=== PATIENT | female | born 1995 | race Caucasian/White ===

== ENCOUNTER 2018-02-06 12:07 | Emergency (ER) | payer OTHER ==
[~2018-02-06] VITALS: Ht 160 cm; Wt 56.7 kg
[2018-02-06 12:22] VITALS: BP 113/69
[2018-02-06] MEDS ORDERED: AMOXICILLIN500 M2 PO (14:40)
[2018-02-06] MEDS ORDERED: XULANE PATCH1 EACH TOP (14:41)
[2018-02-06] MEDS ORDERED: HYDROXYZINE HCL25 M3 PO (14:42)
--- NOTE | 2018-02-06 14:45 | ED THROAT/DENTAL COMPLAINT ---
History of Present Illness General Chief Complaint: General Adult Stated Complaint: VOMITTING, SWOLLEN TONGUE STATUS POST ORAL SURGERY Source: patient Exam Limitations: no limitations Vital Signs & Intake/Output Vital Signs & Intake/Output Vital Signs Date Time Temp Pulse Resp B/P B/P Pulse O2 O2 Flow FiO2 Mean Ox Delivery Rate 02/06 1349 99 Room Air 02/06 1222 97.3 96 18 113/69 98 Room Air Room Air Allergies Coded Allergies: No Known Allergies (02/06/18) Triage Note: PT TO ED S/P "ALL 4 WISDOM TEETH REMOVED ON SUNDAY, NOW FEELING NUMBNESS TO TONGUE SWELLING, DIFF SWALLOWING, VOMITING". Triage Nurses Notes Reviewed? yes : No Patient currently breastfeeds: No HPI: Patient presents for evaluation of tongue swelling and vomiting postop day #2 after 4 wisdom teeth resection. Patient is currently taking an antibiotic ( Augmentin) and was taking hydrocodone up until yesterday for pain. Patient denies any fever or cold symptoms currently. She has been able to swallow liquids and pills. No apparent difficulty breathing. Family contacted the oral surgeon who did the extraction and was told to report to an emergency Department for evaluation of a possible allergic reaction. Past History Travel History Traveled to [place] past 21 day No Medical History Any Pertinent Medical History? see below for history Neurological: NONE EENT: NONE Cardiovascular: NONE Respiratory: NONE Gastrointestinal: NONE Hepatic: NONE Renal: NONE Musculoskeletal: NONE Psychiatric: anxiety Endocrine: NONE Blood Disorders: NONE Cancer(s): NONE SENIOR HOUSEKEEPER/Reproductive: NONE Surgical History Surgical History: SEE hpi Psychosocial History What is your primary language Kyrgyz Tobacco Use: Never used ETOH Use: occasional use Illicit Drug Use: denies illicit drug use Family History Hx Contributory? No Review of Systems Review of Systems Constitutional: Reports: no symptoms. EENTM: Reports: see HPI. Respiratory: Reports: no symptoms. Cardiovascular: Reports: no symptoms. GI: Reports: no symptoms. Genitourinary: Reports: no symptoms. Musculoskeletal: Reports: no symptoms. Skin: Reports: no symptoms. Neurological/Psychological: Reports: no symptoms. Hematologic/Endocrine: Reports: no symptoms. Immunologic/Allergic: Reports: no symptoms. All Other Systems: Reviewed and Negative Physical Exam Physical Exam Mouth/Throat: SEE BELOW Comments: Gen.: Well-nourished, well-developed, no acute respiratory distress. Head: Normocephalic, atraumatic. Eyes: Normal inspection bilaterally Ears: Normal inspection bilaterally Nose: Normal inspection Throat/mouth : Moist mucosa, mild trismus, inspection of the tooth extraction sites is unremarkable, there is no oropharyngeal erythema or soft tissue swelling or exudates. Inspection of the patient's tongue reveals mild swelling but no erythema or ecchymoses. Manages secretions well Neck: Supple, full range of motion, no goiter, no stridor Lungs: Quiet respirations, clear breath sounds bilaterally Back: Normal range of motion Extremities: Normal range of motion grossly, no cyanosis clubbing or edema of the upper extremities Neurologic: Cranial nerves grossly intact, speech is clear Skin: warm and dry Psychiatric: Calm, cooperative, no apparent delusions or hallucinations Lymphatic: No cervical lymphadenopathy Core Measures ACS in differential dx? No Sepsis Present: No Sepsis Focused Exam Completed? No Progress Differential Diagnosis: epiglottitis, Ludwigs angina, odontogenic abscess, namita- tonsillar abscess, strep pharyngitis, DENTAL TRAUMA Plan of Care: See discharge instructions Comments: Physical examination is reassuring. There is no rash or conjunctiva injection to suggest an acute allergic reaction to medications. I suspect the patient's mild tongue swelling is likely secondary to the extraction procedure. In regards to the patient's vomiting I suspect this is related to the pain medication use, the antibiotic use or perhaps to gag reflex secondary to the tongue swelling. Departure Departure Disposition: HOME OR SELF CARE Condition: Stable Clinical Impression Primary Impression: Tongue swelling Secondary Impressions: Vomiting Qualifiers: Vomiting type: unspecified Vomiting Intractability: non-intractable Nausea presence: with nausea Qualified Code: R11.2 - Nausea with vomiting, unspecified Referrals: Jaskaran Jessica MD (PCP/Family) Additional Instructions: Ibuprofen 800 mg every 8 hours as needed for dental pain. Take your antibiotics with food. Follow-up with your oral surgeon within the next 24-48 hours. Return if any concerns or sudden worsening. Thank you for choosing the [facility] for your care. It was a pleasure to serve you today. Jian Dillon M.D. [facility] Departure Forms: Customer Survey General Discharge Information
== END 2018-02-06 14:57 ==
LOC: ERH 12:07
DX: R22.0 Localized swelling, mass and lump, head (principal); R11.10 Vomiting, unspecified